=== PATIENT | female | born 1940 | race Caucasian/White ===

== ENCOUNTER 2019-05-14 01:09 | Emergency (ER) | payer MEDICARE ==
--- OUTSIDE RECORDS SUMMARY | 2019-05-14 01:21 | XMS REPORT | Continuity of Care Document ---
:1940 External Reference #:[id number] Author Name Queta Chan Care Team Providers Name Role Phone Dulce Rojas MD Primary Care Physician Unavailable Payers Date Identification Numbers Payment Provider Subscriber Policy Number: [id number] Medicare Dede Torres PayID: [id number] [address] [place] [address] Policy Number: [id number] [employer] Dede Torres PayID: [id number] [address] [address] [place] [address] Family History Date Family Member(s) Observation Comments Father due to Emphysema () Mother due to Natural Causes () Siblings 2 Social History Type Date Description Comments Sex Unknown Marital Status 2 Times Lives With Occupation Retired Tobacco Use Start: Unknown End: Former Cigarette Smoker Unknown ETOH Use Drinks 1 Alcoholic Beverage Per Day Recreational Drug Use Never Used Drugs Tobacco Use Start: Unknown Patient has never smoked Smoking Status Reviewed: 05/12/19 Patient has never smoked Exercise Type/Frequency Exercises regularly Allergies, Adverse Reactions, Alerts Active Allergies Reaction Severity Comments Date Amoxicillin 05/05/2019 Cephalexin 05/05/2019 Cipro 05/05/2019 Medications Active Medications SIG Qnty Indications Ordering Provider Date Atorvastatin Calcium 1 by mouth every Unknown 20mg day Tablets Omeprazole 1 by mouth every Unknown 20mg Capsules DR other day Preservision Areds 2 1 by mouth two Unknown Areds times per day 2 Capsules Glucosamine 1500 1 by mouth every Unknown Complex day 1500Com Capsules Align 1 by mouth every Unknown 4mg Capsules day Vital Signs Date Vital Result Comment 05/12/2019 7:48am Height 64 inches 5'4" Weight 142.00 lb Heart Rate 60 /min BP Systolic Sitting 132 mmHg lue reg cuff BP Diastolic Sitting 78 mmHg lue reg cuff BP Systolic Standing 134 mmHg lue reg cuff BP Diastolic Standing 80 mmHg lue reg cuff Respiratory Rate 12 /min BMI (Body Mass Index) 24.4 kg/m2 Ejection Fraction none noted Procedures Date Code Description Status 05/12/2019 05978 EKG Tracing & Interpretation Completed 10/18/2017 96919 Colonoscopy Flexible W/Biopsy Completed 10/18/2017 [id number] Colonoscopy Completed Plan of Treatment Future Appointment(s):05/25/2019 11:30 am - Adrien Palafox DO FACC at [facility] AT [facility] [place]05/12/2019 - Adrien Palafox DO [id number] Encounter for preprocedural cardiovascular examinationNew Orders:Stress Test, Exercise Echocardiogram, Ordered: 05/12/19Follow up:Please schedule stress echo Saturday AM 05/25 at [facility] [place] with me CASTILLON
[2019-05-14] MEDS ORDERED: NS 0.9% 1000 ML** 2,000 ML IV ONE (01:31)
--- NOTE | 2019-05-14 01:35 | ED ---
Abdominal Pain/Female - HPI Summary HPI Summary: Pt is a 79 y/o F presenting to the ED with a chief complaint of abd pain onset . She states she had diarrhea described as mostly mucous and flecks of blood, with little stool, accompanied by abdominal cramping in her lower abd. She also reports a subjective fever, decreased appetite, chills, nausea, fatigue , and headache. She denies vomiting or shaking. Her sx are aggravated by movement. 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 - History of Current Complaint Chief Complaint: EDNauseaVomitDiarrh Stated Complaint: ABD PAIN PER PT Time Seen by Provider: 05/14/19 01:15 Hx Obtained From: Patient Onset/Duration: Gradual Onset, Lasting Days, Still Present Timing: Frequency Of Episodes - every 30 min Severity Initially: Moderate Severity Currently: Severe Pain Intensity: 7 Pain Scale Used: 0-10 Numeric Location: Umbilical Radiates: No Character: Cramping Aggravating Factor(s): Movement Alleviating Factor(s): Nothing Associated Signs and Symptoms: Positive: Fever, Blood in Stool, Decreased Appetite, Nausea, Diarrhea Allergies/Adverse Reactions: Allergies Allergy/AdvReac Type Severity Reaction Status Date / Time MS Ciprofloxacin [From Cipro] Allergy Hives Verified 10/18/17 13:05 MS Penicillins [PCN] Allergy Diarrhea Verified 10/18/17 13:04 PMH/Surg Hx/FS Hx/Imm Hx Previously Healthy: Yes Endocrine/Hematology History: Denies: Hx Diabetes Respiratory History: Reports: Hx Chronic Bronchitis Musculoskeletal History: Denies: Hx Rheumatoid Arthritis, Hx Osteoporosis Neurological History: Denies: Hx Headaches - Cancer History Hx Chemotherapy: No Hx Radiation Therapy: No - BENIGN BRAIN TUMOR - Surgical History Surgery Procedure, Year, and Place: PARTIAL HYSTERECOMY - Immunization History Date of Tetanus Vaccine: unk Date of Influenza Vaccine: unk Infectious Disease History: No Infectious Disease History: Denies: Traveled Outside the [place] in Last 30 Days - Family History Known Family History: Negative: Cardiac Disease - Social History Alcohol Use: Occasionally Hx Substance Use: No Substance Use Type: Reports: None Hx Tobacco Use: No Smoking Status (MU): Never Smoked Tobacco Review of Systems Positive: Fever, Chills, Fatigue, Other - decreased appetite Positive: Abdominal Pain, Diarrhea, Nausea, Other - blood/mucous in stool Negative: Other - shaking Positive: Headache All Other Systems Reviewed And Are Negative: Yes Physical Exam - Summary Physical Exam Summary: Appearance: Well-appearing, Well-nourished, lying in bed comfortably Skin: Warm, dry, no obvious rash Eyes: sclera anicteric, no conjunctival pallor ENT: mucous membranes moist, pharynx appears normal Neck: Supple, nontender Respiratory: Clear to auscultation, no signs of respiratory distress Cardiovascular: Mild tachycardia. No murmurs. Normal distal pulses in tibial and radial bilaterally. Abdomen: Soft, nontender, normal active bowel sounds present Musculoskeletal: Normal, Strength/ROM Intact Neurological: A&Ox3, awake and alert, mentation is normal, speech is fluent and appropriate Psychiatric: affect is normal, does not appear anxious or depressed Triage Information Reviewed: Yes Vital Signs On Initial Exam: Initial Vitals Temp Pulse Resp BP Pulse Ox 97.5 F 105 18 164/125 97 05/14/19 01:10 05/14/19 01:10 05/14/19 01:10 05/14/19 01:10 05/14/19 01:10 Vital Signs Reviewed: Yes Diagnostics - Vital Signs Vital Signs Temp Pulse Resp BP Pulse Ox 05/14/19 01:10 97.5 F 105 18 164/125 97 - Laboratory Result Diagrams: 05/14/19 01:50 05/14/19 01:50 Lab Statement: Any lab studies that have been ordered have been reviewed, and results considered in the medical decision making process. Abdominal Pain Fem Course/Dx - Course Course Of Treatment: Pt is a 79 y/o F presenting to the ED with a chief complaint of abd pain onset 05/10/19. She states she had diarrhea described as mostly mucous and flecks of blood, with little stool, accompanied by abdominal cramping in her lower abd. She also reports a subjective fever, decreased appetite, chills, nausea, fatigue, and headache. She denies vomiting or shaking. Her sx are aggravated by movement. 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 Her physical exam reveals mild tachycardia. She will be sent home with dx of infectious colitis pending c. diff results. The pt or her will be called with the results and a prescription will be sent if necessary. - Diagnoses Provider Diagnoses: Infectious colitis Discharge - Sign-Out/Discharge Documenting (check all that apply): Patient Departure Patient Received Moderate/Deep Sedation with Procedure: No - Discharge Plan Condition: Good Disposition: HOME Patient Education Materials: Acute Diarrhea (ED) Referrals: Dulce Rojas MD [Primary Care Provider] - Additional Instructions: You can use OTC anti diarrheal medication but I suspect this will resolve on its own over the next few days. If the c. diff comes back positive I will call you by morning, if the cultures turn positive one of our staff will contact you in the next couple of days. - Billing Disposition and Condition Condition: GOOD Disposition: Home - Attestation Statements Document Initiated by Carteribe: Yes Documenting Scribe: Savanna Riggins Provider For Whom Violetta is Documenting (Include Credential): Raymnod Gagnon MD. Scribe Attestation: Savanna Weiss, aditied for Raymond Gagnon MD. on 05/14/19 at 0626. Scribe Documentation Reviewed: Yes Provider Attestation: The documentation as recorded by the Savanna arce accurately reflects the service I personally performed and the decisions made by , Raymond Gagnon MD. Status of Scribe Document: Viewed
[2019-05-14 01:56] LABS: ABS Basophils 0.1 10^3/ul (0-0.2); ABS Eosinophils 0.1 10^3/ul (0-0.6); ABS Lymphocytes 1.1 10^3/ul (1.0-4.8); ABS Monocytes 0.8 10^3/ul (0-0.8); ABS Neutrophils 9.2 10^3/ul (1.5-7.7); Eosinophil % 0.9 %; Hematocrit 43 % (35-47); Hemoglobin 14.3 g/dL (12.0-16.0); Lymphocyte % 9.5 %; Mean Corpuscular HGB Conc 34 g/dL (31-36); Mean Corpuscular Hemoglobin 30 pg (27-31); Mean Corpuscular Volume 90 fL (80-97); Mean Platelet Volume 9.4 fL (7.4-10.4); Platelet Count 198 10^3/uL (150-450); Red Blood Count 4.75 10^6 /uL (3.70-4.87); Red Cell Distribution Width 12 % (10-15); White Blood Count 11.2 10^3/uL (3.5-10.8)
[2019-05-14 02:12] LABS: Albumin 4.1 g/dL (3.2-5.2); Albumin/Globulin Ratio 1.5 (1-3); BUN/Creatinine Ratio 15.2 (8-20); Calcium 9.5 mg/dL (8.6-10.3); EGFR African American 105.1 (>60); EGFR Non-African American 86.8 (>60); Globulin 2.7 g/dL (2-4); Potassium 3.8 mmol/L (3.5-5.0); Total Bilirubin 0.8 mg/dL (0.2-1.0); Total Protein 6.8 g/dL (6.4-8.9)
[2019-05-14 04:59] VITALS: BP 151/81
== END 2019-05-14 05:00 | disposition home or self-care (01) ==
LOC: ED 01:09
DX: A09 Infectious gastroenteritis and colitis, unspecified (principal); R50.9 Fever, unspecified; R10.9 Unspecified abdominal pain; R53.83 Other fatigue; R51 Headache
CPT/HCPCS: 36415; 80053; 85025; 87045; 87046; 87077; 87493; 87899; 99283